=== PATIENT | male | born 1945 | race African-American/Black ===

== ENCOUNTER 2025-01-08 12:42 | Outpatient (CLI) | payer OTHER ==
--- NOTE | 2025-01-08 17:50 | CARDIOLOGY REPORT ---
APPROVED REPORT EXAM: Comprehensive 2D, Doppler, and color-flow Echocardiogram. Patient Location: OUT-PATIENT Blood Pressure: 135/95 mmHg Heart Rate: 57 bpm Rhythm: Bradycardia Indications Atherosclerotic Heart Disease LITHOGRAPHIC PRESS OPERATOR: (KATIE Knight) NO Previous ECHO 2D Dimensions LA Diam4.2 cm IVSd 0.9 (0.7-1.1cm) LVDd 5.5 cm PWd 0.9 (0.7-1.1cm) IVSs 1.5 (0.8-1.2cm) LVDs 4.4 (2.5-4.0cm) PWs 1.2 (0.8-1.2cm) LVOT Diameter 2.52 (1.8-2.4cm) LVEF(%) 41.8 (>50%) IVC 14.83 mm FS (%) 20.7 % SV 61.5 ml M-Mode Dimensions Left Atrium(MM) 4.28 (2.5-4.0cm) Aortic Root 2.83 (2.2-3.7cm) Aortic Valve AoV Peak Madan. 129.2 cm/s AoV VTI 23.3 cm AO Peak GR. 6.7 mmHg AO Mean GR. 4 mmHg LVOT VTI 17.87 cm LVOT Peak Madan. 90.8 cm/s SEVERINO (VMAX) 3.51 cm2 SEVERINO (VTI) 3.83 cm2 Mitral Valve MV E Velocity 33.0 cm/s MV DECEL TIME 183 ms MV A Velocity 91.9 cm/s MV PHT 60 ms E/A Ratio 0.4 MVA (PHT) 3.70 cm2 TDI E/Medial E' 15.5 Pulmonary Valve PV Peak Velocity 79.0 cm/s PV Peak Grad. 2 mmHg Tricuspid Valve TR P. Velocity 249 cm/s RAP ESTIMATE 10 mmHg TR Peak Gr. 25 mmHg RVSP 35 mmHg LEFT VENTRICLE Normal LV size and wall thickness. Overall systolic function is moderately decreased. LVEF is 40-45%. RIGHT VENTRICLE The right ventricle is normal size with reduced function.. ATRIA Left atrium is mildly dilated. AORTIC VALVE Trileaflet AV appears mildly sclerotic without stenosis. Trivial insufficiency. MITRAL VALVE Mild mitral annular calcification without stenosis. Trace regurgitation. TRICUSPID VALVE The tricuspid valve is normal in structure with mild regurgitation. PULMONIC VALVE The pulmonary valve is normal in structure with physiologic insufficiency. GREAT VESSELS The aortic root is normal in size. Ascending aorta is dilated (4.0 cm). The IVC is normal in size and collapses >50% with inspiration. PERICARDIUM Normal pericardium. No effusion. Other Information Study Quality: Adequate
== END 2025-01-08 23:59 | disposition home or self-care (01) ==
LOC: RAD 12:42
PROVIDERS: ATTEND Chiropractor
DX: I08.3 Combined rheumatic disorders of mitral, aortic and tricuspid valves (principal); I25.10 Atherosclerotic heart disease of native coronary artery without angina pectoris
CPT/HCPCS: 93306